=== PATIENT | male | born 1985 | race Caucasian/White ===

== ENCOUNTER 2018-06-27 05:37 | Day surgery (SDC) | payer OTHER ==
[~2018-06-27] VITALS: Ht 160 cm; Wt 68.0 kg
--- NOTE | ~2018-06-27 | OP ---
PATIENT NAME: PHILLY ANGELES MEDICAL RECORD: [id number] LOCATION:[facility] ADMISSION DATE: SURGEON: MONET AHMADI MD DATE OF OPERATION: 06/27/2018 PREOPERATIVE DIAGNOSIS: Symptomatic right inguinal hernia. POSTOPERATIVE DIAGNOSES: Symptomatic right indirect inguinal hernia. Also, right cord lipoma. PROCEDURES: 1. Open right inguinal hernia repair with preperitoneal bilayered polypropylene mesh. 2. Excision of right cord lipoma. SURGEON: Monet Ahmadi MD MILK WAGON DRIVER: YVONNE Salas BLOOD LOSS: Minimal. COMPLICATIONS: None. The risks, possible complications and alternatives to the procedure were explained to the patient. He elects to proceed. I specifically discussed with him that we would be using mesh. We discussed the risks of bleeding requiring an emergency reoperation, infection, the fact that the mesh could be recalled in the future, chronic pain, hernia recurrence. OPERATIVE COURSE: The patient was conveyed to the operating room electively on 06/27/2018. General anesthesia was induced by the anesthesia staff. The abdomen and genitals were sterilely prepped and draped. A transverse incision was accomplished in the right groin. Sharp dissection was carried down through skin and subcutaneous tissue as well as Sharmaine fascia. The external oblique aponeurosis was then cleaned of overlying connective tissue. External oblique aponeurosis was then incised along the direction of its fibers. I bluntly dissected down through the internal oblique and transverse abdominis muscles. A preperitoneal pocket was fashioned bluntly. The cord structures were mobilized. There was no direct component. No femoral component. There was an indirect hernia sac, which was reduced in its entirety. Two cord lipomas were identified and these were excised with the electrocautery. Once I was satisfied with the preperitoneal pocket, I cut 2 ovals of polypropylene and sutured them on top of each other with a running #1 Surgidac. The mesh was then placed in the preperitoneal space. Once I was satisfied with placement of the mesh, I allowed the transverse abdominis and internal oblique muscles to come together and I sutured these together with multiple interrupted horizontal mattress 0 surgidacs incorporating a portion of the underlying mesh with these sutures. The external oblique aponeurosis was closed with running #1 Vicryls. Sharmaine fascia was approximated with interrupted 3-0 Vicryls. The subdermis was approximated with interrupted 3-0 Vicryls. The skin was approximated with a running intracuticular 4-0 Vicryl. Benzoin and Steri-Strips were applied. The patient was then extubated and conveyed to the post-anesthesia care unit OPERATIVE REPORT [id number] PHILLY ANGELES where he was in stable condition. The patient should not do any lifting or straining for about 3 weeks and then he can begin increasing the level of his activity. He states that he would like to have a thicker mat in his retirement cell. I will dismiss him back to the [facility] with a small prescription for narcotics. There is no need for the patient to see me in the office in followup unless he has a complication related to this operative procedure. TRANSINT:[id number] Voice Confirmation ID: [id number] DOCUMENT ID: [id number] MONET AHMADI MD at 1240 CC: [id number] DICTATION DATE: 06/27/18 1329 [employer] W[employer] WEAVER: 06/27/18 1358 [facility] 06/27/18 [id number] [id number] [id number]
[2018-06-27 10:09] VITALS: BP 97/57; Ht 160 cm; Wt 68.0 kg
[2018-06-27] MEDS ORDERED: COLACE100 MG PO (10:37)
[2018-06-27] MEDS ORDERED: IBUPROFEN600 MG PO (10:38)
[2018-06-27] MEDS ORDERED: AZASAN75 MG (10:43)
== END 2018-06-27 17:00 ==
LOC: D.OPS 05:37 → D.SDCHOLD 05:39 → D.OPS 08:15
DX: K40.90 Unilateral inguinal hernia, without obstruction or gangrene, not specified as recurrent (principal); D17.6 Benign lipomatous neoplasm of spermatic cord